=== PATIENT | female | born 1955 | race Asian ===

== ENCOUNTER 2021-08-16 11:53 | Inpatient (IN) | payer OTHER ==
[~2021-08-16] VITALS: Ht 144.8 cm; Wt 67.8 kg
[2021-08-16] VITALS (7 sets, daily range): BP systolic 106–135; BP diastolic 43–59
[2021-08-16] MEDS ORDERED: PANTOPRAZOLE SODIUM 80 MG in SODIUM CHLORIDE 0.9% 100 ML IV SCH (12:15)
[2021-08-16] MEDS ORDERED: PANTOPRAZOLE SODIUM 40 MG/VIAL IVP ONE (12:15)
[2021-08-16] MEDS ORDERED: IOHEXOL 350 MG/ML 100 ML VIAL ONE (12:19)
[2021-08-16] MEDS ORDERED: SODIUM CHLORIDE 0.9% 100 ML ONE (12:19)
[2021-08-16 12:47] LABS: BASOPHILS % (AUTO) 0.7 % (0.0-2.0); CALCIUM, TOTAL 7.7 mg/dL (8.8-10.5); CREATININE 1.24 mg/dL (0.60-1.30); EOSINOPHILS % (AUTO) 0.4 % (1.0-6.0); HEMATOCRIT 21.2 % (36-46); LYMPHOCYTES # (AUTO) 1.2 K/uL (1.0-4.8); LYMPHOCYTES % (AUTO) 28.5 % (22.0-44.0); MEAN CORPUSCULAR HEMOGLOBIN 29.5 pg (26.0-34.0); MEAN CORPUSCULAR HGB CONC 31.8 G/dL (31.0-37.0); MEAN CORPUSCULAR VOLUME 93 fL (80-100); MONOCYTES # (AUTO) 0.3 K/uL (0.1-1.0); NEUTROPHILS # (AUTO) 2.7 K/uL (1.8-7.7); NEUTROPHILS % (AUTO) 63.4 % (40.0-70.0); PLATELET COUNT (AUTO) 159 K/uL (150-450); RED BLOOD CELL COUNT(AUTO) 2.29 MIL/uL (4.00-5.20); RED CELL DISTRIBUTION WIDTH 19.1 % (11.5-14.5)
[2021-08-16 12:51] LABS: INR 1.1 (0.9-1.1); PROTHROMBIN TIME 11.7 SEC (9.4-11.6)
[2021-08-16 12:59] LABS: HEMOGLOBIN 6.8 g/dL (12.0-16.0)
[2021-08-16 13:10] LABS: COVID AG,FIA SOURCE NASOPHARYNGEAL
[2021-08-16 13:13] LABS: BILIRUBIN,TOTAL 0.6 mg/dL (0.1-1.0); MAGNESIUM 2.1 mg/dL (1.80-2.40); PHOSPHORUS 3.9 mg/dL (2.5-4.9); TOTAL PROTEIN, SERUM 6.5 g/dL (6.4-8.2)
[2021-08-16] MEDS ORDERED: ACETAMINOPHEN 325 MG TABLET PO PRN (13:30)
[2021-08-16] MEDS ORDERED: SODIUM CHLORIDE 0.9% 1,000 ML IV ONE ×2 (13:30)
[2021-08-16] MEDS ORDERED: ONDANSETRON HCL 4 MG/2 ML VIAL IVP PRN (13:30)
[2021-08-16] MEDS ORDERED: DEXTROSE 50%-WATER 25 GM/50 ML SYRINGE IVP PRN (13:30)
[2021-08-16] MEDS ORDERED: ATOR40TA28 PO (13:31)
[2021-08-16] MEDS ORDERED: ALLO100T PO (13:34)
[2021-08-16] MEDS ORDERED: ASPI-1444 PO (13:34)
[2021-08-16] MEDS ORDERED: ERTU15TA PO (13:34)
[2021-08-16] MEDS ORDERED: EZET10TA57 PO (13:34)
[2021-08-16] MEDS ORDERED: LOSA-381 PO (13:34)
[2021-08-16] MEDS ORDERED: CHOL100062 PO (13:34)
[2021-08-16] MEDS ORDERED: INSU100I34 SQ (13:34)
[2021-08-16] MEDS ORDERED: INSLAN SQ (13:34)
[2021-08-16 19:09] LABS: BASOPHILS % (AUTO) 0.6 % (0.0-2.0); EOSINOPHILS % (AUTO) 0.1 % (1.0-6.0); HEMATOCRIT 25.4 % (36-46); HEMOGLOBIN 8.2 g/dL (12.0-16.0); LYMPHOCYTES # (AUTO) 1.4 K/uL (1.0-4.8); LYMPHOCYTES % (AUTO) 25.2 % (22.0-44.0); MEAN CORPUSCULAR HEMOGLOBIN 29.7 pg (26.0-34.0); MEAN CORPUSCULAR HGB CONC 32.3 G/dL (31.0-37.0); MEAN CORPUSCULAR VOLUME 92 fL (80-100); MONOCYTES # (AUTO) 0.5 K/uL (0.1-1.0); MONOCYTES % (AUTO) 9.4 % (2.0-9.0); NEUTROPHILS # (AUTO) 3.7 K/uL (1.8-7.7); NEUTROPHILS % (AUTO) 64.7 % (40.0-70.0); PLATELET COUNT (AUTO) 144 K/uL (150-450); RED BLOOD CELL COUNT(AUTO) 2.77 MIL/uL (4.00-5.20); RED CELL DISTRIBUTION WIDTH 17.9 % (11.5-14.5)
[2021-08-16] MEDS: INSULIN LISPRO 100 UNITS/ML SQ PRN (19:17)
[2021-08-16] MEDS: DOCUSATE SODIUM 100 MG CAPSULE PO SCH (21:00)
[2021-08-16] MEDS: PANTOPRAZOLE SODIUM 80 MG in SODIUM CHLORIDE 0.9% 100 ML IV SCH (21:21)
[2021-08-16] MEDS ORDERED: RINGERS SOLUTION,LACTATED 1,000 ML IV SCH (21:45)
[2021-08-16 22:06] LABS: GLUCOSE,POINT OF CARE 158 MG/DL (70-110)
[2021-08-16] MEDS: RINGERS SOLUTION,LACTATED 1,000 ML IV SCH (22:13)
[2021-08-17] VITALS (12 sets, daily range): BP systolic 106–133; BP diastolic 44–73
[2021-08-17] MEDS: RINGERS SOLUTION,LACTATED 1,000 ML IV SCH ×2 (05:31→13:55)
[2021-08-17 05:56] LABS: GLUCOMETER DEV NAME(LOC) AHU.; GLUCOSE,POINT OF CARE 202 MG/DL (70-110)
[2021-08-17 06:21] LABS: BASOPHILS % (AUTO) 1.2 % (0.0-2.0); EOSINOPHILS % (AUTO) 1.2 % (1.0-6.0); HEMATOCRIT 21.7 % (36-46); LYMPHOCYTES # (AUTO) 2.7 K/uL (1.0-4.8); LYMPHOCYTES % (AUTO) 41.9 % (22.0-44.0); MEAN CORPUSCULAR HEMOGLOBIN 29.4 pg (26.0-34.0); MEAN CORPUSCULAR HGB CONC 32.3 G/dL (31.0-37.0); MEAN CORPUSCULAR VOLUME 91 fL (80-100); MONOCYTES # (AUTO) 0.7 K/uL (0.1-1.0); MONOCYTES % (AUTO) 11.2 % (2.0-9.0); NEUTROPHILS # (AUTO) 2.9 K/uL (1.8-7.7); NEUTROPHILS % (AUTO) 44.5 % (40.0-70.0); PLATELET COUNT (AUTO) 140 K/uL (150-450); RED BLOOD CELL COUNT(AUTO) 2.39 MIL/uL (4.00-5.20)
[2021-08-17 06:36] LABS: ALBUMIN 1.8 g/dL (3.4-5.0); BILIRUBIN,TOTAL 0.7 mg/dL (0.1-1.0); CALCIUM, TOTAL 7.4 mg/dL (8.8-10.5); CREATININE 1.1 mg/dL (0.60-1.30); POTASSIUM 4.4 mmol/L (3.5-5.1); TOTAL PROTEIN, SERUM 5.7 g/dL (6.4-8.2)
[2021-08-17 08:22] LABS: GLUCOSE,POINT OF CARE 119 MG/DL (70-110)
[2021-08-17] MEDS: PANTOPRAZOLE SODIUM 80 MG in SODIUM CHLORIDE 0.9% 100 ML IV SCH ×2 (08:42→18:56)
[2021-08-17] MEDS: DOCUSATE SODIUM 100 MG CAPSULE PO SCH ×2 (08:42→21:00)
[2021-08-17] MEDS ORDERED: SODIUM CHLORIDE 0.9% 250 ML IV ONE (13:51)
[2021-08-17 17:58] LABS: HEMATOCRIT 28.9 % (36-46); HEMOGLOBIN 9.7 g/dL (12.0-16.0)
[2021-08-17] MEDS: INSULIN LISPRO 100 UNITS/ML SQ PRN ×2 (18:57→21:52)
[2021-08-17 21:56] LABS: GLUCOSE,POINT OF CARE 111 MG/DL (70-110)
[2021-08-17 21:56] LABS: GLUCOSE,POINT OF CARE 225 MG/DL (70-110)
[2021-08-18] VITALS: BP 102/51
[2021-08-18] MEDS: RINGERS SOLUTION,LACTATED 1,000 ML IV SCH ×3 (00:06→14:06)
[2021-08-18 01:21] LABS: GLUCOMETER DEV NAME(LOC) AHU.; GLUCOSE,POINT OF CARE 158 MG/DL (70-110)
[2021-08-18] MEDS ORDERED: LIDOCAINE/PF 2% 5 ML SYRINGE IVP ONE (01:25)
[2021-08-18] MEDS ORDERED: PROPOFOL 1% 20 ML VIAL IVP ONE (01:25)
[2021-08-18 04:00] VITALS: BP 110/60
[2021-08-18] MEDS: PANTOPRAZOLE SODIUM 80 MG in SODIUM CHLORIDE 0.9% 100 ML IV SCH ×2 (07:28→07:50)
[2021-08-18 08:00] VITALS: BP 118/46
[2021-08-18] MEDS: DOCUSATE SODIUM 100 MG CAPSULE PO SCH (08:02)
[2021-08-18 08:16] LABS: BASOPHILS % (AUTO) 1.3 % (0.0-2.0); EOSINOPHILS % (AUTO) 3.2 % (1.0-6.0); HEMATOCRIT 28.3 % (36-46); HEMOGLOBIN 9.4 g/dL (12.0-16.0); LYMPHOCYTES # (AUTO) 2.5 K/uL (1.0-4.8); LYMPHOCYTES % (AUTO) 42.1 % (22.0-44.0); MEAN CORPUSCULAR HEMOGLOBIN 29.9 pg (26.0-34.0); MEAN CORPUSCULAR HGB CONC 33.2 G/dL (31.0-37.0); MEAN CORPUSCULAR VOLUME 90 fL (80-100); MONOCYTES # (AUTO) 0.5 K/uL (0.1-1.0); NEUTROPHILS # (AUTO) 2.7 K/uL (1.8-7.7); NEUTROPHILS % (AUTO) 44.4 % (40.0-70.0); PLATELET COUNT (AUTO) 142 K/uL (150-450); RED BLOOD CELL COUNT(AUTO) 3.14 MIL/uL (4.00-5.20)
[2021-08-18 08:21] LABS: GLUCOMETER DEV NAME(LOC) AHU.; GLUCOSE,POINT OF CARE 110 MG/DL (70-110)
[2021-08-18 08:27] LABS: CREATININE 1.13 mg/dL (0.60-1.30); POTASSIUM 4.2 mmol/L (3.5-5.1)
[2021-08-18 13:23] VITALS: BP 130/52
[2021-08-18 16:00] VITALS: BP 126/61
[2021-08-18] MEDS: INSULIN LISPRO 100 UNITS/ML SQ PRN (16:56)
[2021-08-18 17:11] LABS: GLUCOMETER DEV NAME(LOC) AHU.; GLUCOSE,POINT OF CARE 201 MG/DL (70-110)
[2021-08-18 22:46] LABS: GLUCOMETER DEV NAME(LOC) AHU.; GLUCOSE,POINT OF CARE 190 MG/DL (70-110)
[2021-08-19] VITALS: BP 118/78
[2021-08-19] MEDS: DOCUSATE SODIUM 100 MG CAPSULE PO SCH ×2 (00:34→07:43)
[2021-08-19] MEDS: PANTOPRAZOLE SODIUM 40 MG/VIAL IVP SCH ×2 (00:34→07:43)
[2021-08-19] MEDS: RINGERS SOLUTION,LACTATED 1,000 ML IV SCH ×2 (00:34→05:30)
[2021-08-19] MEDS: INSULIN LISPRO 100 UNITS/ML SQ PRN (00:36)
[2021-08-19 04:00] VITALS: BP 11/68
[2021-08-19 06:31] LABS: GLUCOSE,POINT OF CARE 101 MG/DL (70-110)
[2021-08-19 08:00] VITALS: BP 124/54
[2021-08-19] MEDS ORDERED: PANT-31 PO (08:01)
== END 2021-08-19 11:47 | disposition home or self-care (01) | DRG 377 ==
LOC: EMS 11:57 → ICU 17:24
PROVIDERS: ADMIT Internal Medicine; ATTEND Internal Medicine
PROC: 30233N1 Transfusion of Nonautologous Red Blood Cells into Peripheral Vein, Percutaneous Approach (ICD-10-PCS; 2021-08-16)
PROC: 0DB68ZX Excision of Stomach, Via Natural or Artificial Opening Endoscopic, Diagnostic (ICD-10-PCS; 2021-08-17)
PROC: 0DB98ZX Excision of Duodenum, Via Natural or Artificial Opening Endoscopic, Diagnostic (ICD-10-PCS; principal; 2021-08-17 09:40)
DX: K25.4 Chronic or unspecified gastric ulcer with hemorrhage (principal); K85.90 Acute pancreatitis without necrosis or infection, unspecified; R57.8 Other shock; Z20.822 Contact with and (suspected) exposure to COVID-19; I10 Essential (primary) hypertension; M10.9 Gout, unspecified; I44.1 Atrioventricular block, second degree; E11.9 Type 2 diabetes mellitus without complications; D50.0 Iron deficiency anemia secondary to blood loss (chronic); D69.6 Thrombocytopenia, unspecified; E78.5 Hyperlipidemia, unspecified; Z83.3 Family history of diabetes mellitus; Z79.4 Long term (current) use of insulin; Z88.5 Allergy status to narcotic agent; Z88.8 Allergy status to other drugs, medicaments and biological substances; Z79.899 Other long term (current) drug therapy; K26.0 Acute duodenal ulcer with hemorrhage; I85.00 Esophageal varices without bleeding
CPT/HCPCS: 71045; 74177; 80048; 80053; 82550; 82962; 83690; 83735; 83880; 84100; 84484; 85014; 85018; 85025; 85610; 85730; 86850; 86900; 86901; 86923; 87081; 88305; 88312; 88313; 93005; 93306; 99291; C9113; G0378; J2704; J3490; J7030; J7050; J7120; P9016; Q9967; 36415-L1; 36415-TC

== ENCOUNTER 2021-08-24 12:33 | Inpatient (IN) | payer OTHER ==
[~2021-08-24] VITALS: Ht 144.8 cm; Wt 67.0 kg
[~2021-08-24 12:33] MED LIST: ATOR40TA28 PO; CHOL100062 PO; PANT-31 PO
[2021-08-24 14:28] LABS: HEMATOCRIT 31.2 % (36-46); HEMOGLOBIN 10.2 g/dL (12.0-16.0); MEAN CORPUSCULAR HEMOGLOBIN 29.9 pg (26.0-34.0); MEAN CORPUSCULAR HGB CONC 32.7 G/dL (31.0-37.0); MEAN CORPUSCULAR VOLUME 92 fL (80-100); PLATELET COUNT (AUTO) 141 K/uL (150-450); RED BLOOD CELL COUNT(AUTO) 3.41 MIL/uL (4.00-5.20); RED CELL DISTRIBUTION WIDTH 17.1 % (11.5-14.5)
[2021-08-24] MEDS ORDERED: ONDANSETRON HCL 4 MG/2 ML VIAL IVP PRN (14:30)
[2021-08-24] MEDS ORDERED: DEXTROSE 50%-WATER 25 GM/50 ML SYRINGE IVP PRN (14:30)
[2021-08-24] MEDS ORDERED: ACETAMINOPHEN 325 MG TABLET PO PRN (14:30)
[2021-08-24 14:38] LABS: CALCIUM, TOTAL 8.2 mg/dL (8.8-10.5); CREATININE 1.06 mg/dL (0.60-1.30); POTASSIUM 4.2 mmol/L (3.5-5.1)
[2021-08-24 14:51] LABS: ALBUMIN 2.1 g/dL (3.4-5.0); BILIRUBIN,TOTAL 1.2 mg/dL (0.1-1.0); THYROID STIMULATING HORMONE 2.03 uIU/mL (0.36-3.74); TOTAL PROTEIN, SERUM 7.1 g/dL (6.4-8.2)
[2021-08-24 15:12] LABS: BAND NEUTROPHILS % (MANUAL) 4 % (0-5); LYMPHOCYTES % (MANUAL) 32 % (22-44); MONOCYTES % (MANUAL) 11 % (2-9); SEGMENTED NEUTROPHILS % 53 % (40-70); WBC MORPHOLOGY TOXIC VACUOLATION
[2021-08-24 15:13] LABS: PLATELET MORPHOLOGY COMMENT LARGE PLTS PRESENT
[2021-08-24] MEDS ORDERED: FUROSEMIDE 20 MG/2 ML VIAL IVP ONE (15:15)
[2021-08-24] MEDS ORDERED: SODIUM CHLORIDE 0.9% 100 ML ONE (15:31)
[2021-08-24] MEDS ORDERED: IOHEXOL 350 MG/ML 100 ML VIAL ONE (15:32)
[2021-08-24 16:00] LABS: COVID AG,FIA SOURCE NASAL SWAB
[2021-08-24 17:42] LABS: APPEARANCE,URINE CLEAR (CLEAR); BILIRUBIN,URINE NEGATIVE (NEGATIVE); GLUCOSE, URINE (UA) 300-500 mg/dL (NEGATIVE); KETONES,URINE NEGATIVE (NEGATIVE); LEUKOCYTE ESTERASE ,URINE NEGATIVE (NEGATIVE); NITRATE,URINE NEGATIVE (NEGATIVE); OCCULT BLOOD,URINE NEGATIVE (NEGATIVE); PH,URINE 5.5 (5.0-8.0); PROTEIN,URINE NEGATIVE (NEGATIVE); SPECIFIC GRAVITIY, URINE 1.011 (1.003-1.030); UROBILINOGEN,URINE <=1.0 mg/dL (<=1.0)
[2021-08-24 17:51] LABS: BACTERIA,URINE None Seen /HPF (None Seen); RBC,URINE None Seen /HPF (0-2); WBC,URINE None Seen /HPF (0-5)
[2021-08-24] MEDS: DOCUSATE SODIUM 100 MG CAPSULE PO SCH (21:00)
[2021-08-24 21:11] VITALS: BP 142/59
[2021-08-24] MEDS: PANTOPRAZOLE SODIUM 40 MG DR TABLET PO SCH (21:24)
[2021-08-24] MEDS: INSULIN LISPRO 100 UNITS/ML SQ PRN (21:31)
[2021-08-24 22:31] LABS: GLUCOMETER DEV NAME(LOC) 5S.1B; GLUCOSE,POINT OF CARE 222 MG/DL (70-110)
[2021-08-25 00:16] VITALS: BP 125/59
[2021-08-25 04:19] VITALS: BP 117/60
[2021-08-25] MEDS: INSULIN LISPRO 100 UNITS/ML SQ PRN ×3 (06:13→20:18)
[2021-08-25 07:11] LABS: GLUCOMETER DEV NAME(LOC) 5S.1B; GLUCOSE,POINT OF CARE 150 MG/DL (70-110)
[2021-08-25 08:31] LABS: CALCIUM, TOTAL 8.1 mg/dL (8.8-10.5); CREATININE 0.99 mg/dL (0.60-1.30); POTASSIUM 3.8 mmol/L (3.5-5.1)
[2021-08-25] MEDS: DOCUSATE SODIUM 100 MG CAPSULE PO SCH ×2 (09:00→20:44)
[2021-08-25] MEDS ORDERED: FAMOTIDINE 20 MG TABLET PO SCH (09:00)
[2021-08-25] MEDS: PANTOPRAZOLE SODIUM 40 MG DR TABLET PO SCH ×2 (09:00→20:45)
[2021-08-25 12:18] LABS: INR 1.1 (0.9-1.1); PROTHROMBIN TIME 11.3 SEC (9.4-11.6)
[2021-08-25] MEDS: NYSTATIN 500,000 UNITS/5 ML SUSPENSION UDCUP PO SCH ×2 (12:43→17:52)
[2021-08-25 13:25] VITALS: BP 133/53
[2021-08-25 16:25] VITALS: BP 143/62
[2021-08-25 17:20] LABS: GLUCOMETER DEV NAME(LOC) 5S.1B; GLUCOSE,POINT OF CARE 218 MG/DL (70-110)
[2021-08-25 18:06] LABS: SPECIMENTYPE,BODY FLUID PERITONEAL
[2021-08-25 18:26] LABS: GLUCOMETER DEV NAME(LOC) 5S.1B; GLUCOSE,POINT OF CARE 148 MG/DL (70-110)
[2021-08-25 18:45] LABS: APPEARANCE,SPUN,BODY FLUID CLEAR (CLEAR); APPEARANCE,UNSPUN,BODY FLUID HAZY (CLEAR); BODY FLUID RBC 118.8 /cu. mm.; COLOR,BODY FLUID YELLOW (LT YELLOW); TOTAL VOLUME,BODY FLUID 1800 mL; WBC, BODY FLUID 30 /cu. mm.
[2021-08-25 19:15] VITALS: BP 132/58
[2021-08-25 19:15] LABS: BASOPHILS,BODY FLUID 0 %; EOSINOPHILS,BF (ANAL) 1 %; LYMPHOCYTES,BODY FLUID 50 %; MONOCYTES,BODY FLUID 45 %; NEUTROPHILS,BODY FLUID 2 %; OTHER CELLS,BODY FLUID 2
[2021-08-25 20:51] LABS: GLUCOMETER DEV NAME(LOC) 5S.2B; GLUCOSE,POINT OF CARE 218 MG/DL (70-110)
[2021-08-25 23:27] VITALS: BP 122/57
[2021-08-26] MEDS: NYSTATIN 500,000 UNITS/5 ML SUSPENSION UDCUP PO SCH ×2 (00:39→09:00)
[2021-08-26 03:28] VITALS: BP 119/50
[2021-08-26] MEDS: INSULIN LISPRO 100 UNITS/ML SQ PRN ×2 (06:04→12:13)
[2021-08-26 07:12] LABS: ALANINE AMINOTRANSFERASE 55 U/L (12-78); ALBUMIN 1.8 g/dL (3.4-5.0); ALKALINE PHOSPHATASE 180 U/L (46-116); ANION GAP 4 mmol/L (8-16); ASPARTATE AMINOTRANSFERASE 86 U/L (15-37); BILIRUBIN,TOTAL 0.8 mg/dL (0.1-1.0); CALCIUM, TOTAL 8.2 mg/dL (8.8-10.5); CARBON DIOXIDE 26 mmol/L (22-29); CHLORIDE 109 mmol/L (98-107); CREATININE 0.89 mg/dL (0.60-1.30); GLOMERULAR FILTR. RATE CALC > 60 mL/min (>60); GLUCOSE,RANDOM 179 mg/dL (70-110); POTASSIUM 3.9 mmol/L (3.5-5.1); SODIUM SERUM 139 mmol/L (136-145); TOTAL PROTEIN, SERUM 6.4 g/dL (6.4-8.2); UREA NITROGEN, BLOOD 14 mg/dL (7-18)
[2021-08-26 07:15] LABS: INR 1.1 (0.9-1.1); PROTHROMBIN TIME 11.4 SEC (9.4-11.6)
[2021-08-26 07:45] VITALS: BP 147/79
[2021-08-26 07:51] VITALS: BP 119/62
[2021-08-26] MEDS: PANTOPRAZOLE SODIUM 40 MG DR TABLET PO SCH (09:00)
[2021-08-26] MEDS: DOCUSATE SODIUM 100 MG CAPSULE PO SCH (09:00)
[2021-08-26] MEDS ORDERED: FUROSEMIDE 20 MG TABLET PO SCH (09:00)
[2021-08-26 11:59] VITALS: BP 131/56
[2021-08-26] MEDS ORDERED: POTA8CAP20 PO (13:44)
[2021-08-26] MEDS ORDERED: FURO-152 PO (13:44)
[2021-08-26 14:01] LABS: GLUCOMETER DEV NAME(LOC) 5S.2B; GLUCOSE,POINT OF CARE 183 MG/DL (70-110)
[2021-08-26 14:06] LABS: GLUCOMETER DEV NAME(LOC) 5S.2B; GLUCOSE,POINT OF CARE 245 MG/DL (70-110)
[2021-08-27] MEDS ORDERED: FUROSEMIDE 20 MG TABLET PO SCH (09:00)
== END 2021-08-26 15:25 | disposition home or self-care (01) | DRG 948 ==
LOC: EMS 12:33 → 5S 14:16
PROVIDERS: ADMIT Internal Medicine; ATTEND Internal Medicine
PROC: 0W9G3ZZ Drainage of Peritoneal Cavity, Percutaneous Approach (ICD-10-PCS; principal; 2021-08-25)
DX: R18.8 Other ascites (principal); E11.9 Type 2 diabetes mellitus without complications; I10 Essential (primary) hypertension; I44.1 Atrioventricular block, second degree; E66.9 Obesity, unspecified; D64.9 Anemia, unspecified; Z20.822 Contact with and (suspected) exposure to COVID-19; K76.0 Fatty (change of) liver, not elsewhere classified; Z79.4 Long term (current) use of insulin; Z83.3 Family history of diabetes mellitus; Z88.5 Allergy status to narcotic agent; Z90.49 Acquired absence of other specified parts of digestive tract; Z88.8 Allergy status to other drugs, medicaments and biological substances; Z68.32 Body mass index [BMI] 32.0-32.9, adult; K25.9 Gastric ulcer, unspecified as acute or chronic, without hemorrhage or perforation
CPT/HCPCS: 49083; 71045; 74177; 76700; 76942; 80048; 80053; 81001; 81003; 82465; 82945; 82962; 83615; 83690; 83880; 83986; 84157; 84443; 84484; 85025; 85610; 85730; 87015; 87075; 87081; 87101; 87205; 87206; 89051; 93005; 93970; 99285; J1940; J7050; Q9967; 36415-L1; 36415-TC; 87070